=== PATIENT | male | born 1945 | race Caucasian/White ===

== ENCOUNTER 2017-12-03 06:24 | Day surgery (SDC) | payer OTHER, MEDICARE ==
[~2017-12-03] VITALS: Ht 193 cm; Wt 101.2 kg
[~2017-12-03 06:24] MED LIST: ASPIR-LOW81 MG PO; ATORVASTATIN CA40 MG PO; GABAPENTIN300 MG PO; LISINOPRIL10 MG PO; ONDANSETRON HCL8 MG PO; PANTOPRAZOLE SO40 MG PO; PROCHLORPERAZIN10 MG PO; SERTRALINE HCL25 MG PO; XELODA500 MG PO
== END 2017-12-03 09:08 | disposition home or self-care (01) ==
LOC: CATH 06:24
PROC: B5181ZA Fluoroscopy of Superior Vena Cava using Low Osmolar Contrast, Guidance (ICD-10-PCS; principal; 2017-12-03)
PROC: 3E03317 Introduction of Other Thrombolytic into Peripheral Vein, Percutaneous Approach (ICD-10-PCS; principal; 2017-12-03)
PROC: 0JH63WZ Insertion of Totally Implantable Vascular Access Device into Chest Subcutaneous Tissue and Fascia, Percutaneous Approach (ICD-10-PCS; principal; 2017-12-03)
PROC: 02HV33Z Insertion of Infusion Device into Superior Vena Cava, Percutaneous Approach (ICD-10-PCS; principal; 2017-12-03)
DX: Z45.2 Encounter for adjustment and management of vascular access device (principal); I87.8 Other specified disorders of veins; C15.9 Malignant neoplasm of esophagus, unspecified
CPT/HCPCS: C1788; C1894; J1644; J2250; J3010; S0020